=== PATIENT | female | born 2000 | race African-American/Black ===

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

== ENCOUNTER 2022-02-12 09:17 | Emergency (ER) | payer OTHER | END 2022-02-12 11:26 | disposition home or self-care (01) | LOC: ERS 09:17 | DX: H66.92 Otitis media, unspecified, left ear (principal); I10 Essential (primary) hypertension | CPT/HCPCS: 99282 ==

== ENCOUNTER 2023-01-08 15:32 | Emergency (ER) | payer OTHER ==
[2023-01-08] MEDS ORDERED: Ondansetron PF 4 MG/2 ML Vial ONE (16:03)
[2023-01-08] MEDS ORDERED: Dexameth. Sod Phosp. 10 MG/ML (CHEMO USE ONLY) ONE (16:03)
[2023-01-08] MEDS ORDERED: Ondansetron ODT 4 MG TAB ONE (16:03)
== END 2023-01-08 17:20 | disposition home or self-care (01) ==
LOC: ERS 15:32
DX: B34.9 Viral infection, unspecified (principal); I10 Essential (primary) hypertension
CPT/HCPCS: 71045; J1100; J2405; Q0162

== ENCOUNTER 2023-08-29 09:54 | Emergency (ER) | payer OTHER, SELFPAY ==
[2023-08-29 10:49] LABS: #Basophils 0.04 10x3/uL (0.0-0.2); %Basophils 0.5 % (0.0-1.0); %Lymphocytes 19.8 % (28.0-48.0); %Neutrophils 67.3 % (31.0-61.0); Hematocrit 25.5 % (36.0-47.0); Hemoglobin 6.5 g/dL (12.0-16.0); Mean Corpuscular HGB CONC 25.5 g/dL (32.0-36.0); Mean Corpuscular Hemoglobin 14.7 pg (25.0-35.0); Mean Corpuscular Volume 57.6 fL (78.0-98.0); Mean Platelet Volume 8.7 fL (7.4-10.4); Platelet Count 646 10x3/uL (130-400); RBC Distribution Width 24.1 % (11.5-14.5); Red Blood Cell (RBC) Count 4.43 mill/uL (4.00-5.20)
[2023-08-29] MEDS ORDERED: Acetaminophen 500 MG TAB ONE ×2 (11:00→13:11)
[2023-08-29 11:05] LABS: ALT (SGPT) 10 U/L (8-55); AST (SGOT) 14 U/L (5-34); Albumin 3.5 g/dL (3.5-5.0); Alkaline Phosphatase 54 U/L (40-100); Anion Gap 13 mmol/L (10-20); BUN (Urea Nitrogen) 7 mg/dL (7.0-18.7); Bilirubin, Total 0.6 mg/dL (0.2-1.2); Calc. Creatinine Clearance 0 mL/min (70-130); Calcium 9.1 mg/dL (7.8-10.44); Carbon Dioxide 18 mmol/L (22-29); Chloride 108 mmol/L (98-107); Estimated GFR 128; Globulin 3.7 g/dL (2.4-3.5); Glucose 101 mg/dL (70-105); Potassium 3.3 mmol/L (3.5-5.1); Protein, Total 7.2 g/dL (6.0-8.3); Sodium 136 mmol/L (136-145)
[2023-08-29 11:37] LABS: Anisocytosis SLIGHT = 6-15 cells HPF (0-5); Hypochromia SLIGHT = 6-15 cells HPF (0-5); Platelet Adequacy Comment Platelets Increased; Polychromasia SLIGHT = 2-3 cells HPF (0-2); Schistocytes SLIGHT = 2-5 cells HPF (0-1); Target Cells MODERATE= 6-15 cells HPF (0-1)
[2023-08-29] MEDS ORDERED: Ondansetron ODT 4 MG TAB ONE (13:11)
[2023-08-29 13:13] LABS: Bilirubin Negative (Negative); Blood, Urine Negative (Negative); CAUTI Indications for Culture Dysuria,urgency,freq; Glucose, Urine (Dipstick) 30 mg/dL (Negative); Ketone, Urine 20 mg/dL (Negative); Leukocyte 500 Leu/uL (Negative); Nitrite Negative (Negative); Protein, Urine (Dipstick) 100 mg/dL (Neg-Trace); Specific Gravity, Urine 1.033 (1.002-1.036); WBC/HPF 21-50 HPF (0-3)
[2023-08-29 13:35] LABS: Clarity Turbid (Clear)
[2023-08-29 13:36] LABS: Bacteria/HPF 2+ HPF (None Seen); Squamous Epithelial 21-50 HPF (0-3)
[2023-08-29 13:37] LABS: Urine Culture Reflex Yes Yes
== END 2023-08-29 14:21 | disposition home or self-care (01) ==
LOC: ERS 09:54
DX: O34.81 Maternal care for other abnormalities of pelvic organs, first trimester (principal); O23.41 Unspecified infection of urinary tract in pregnancy, first trimester; O16.1 Unspecified maternal hypertension, first trimester; N39.0 Urinary tract infection, site not specified; Z3A.01 Less than 8 weeks gestation of pregnancy
CPT/HCPCS: 36415; 76801; 80053; 81001; 84702; 85025; 86850; 86900; 86901; 87077; 87086; 87186; Q0162

== ENCOUNTER 2023-09-03 10:12 | Emergency (ER) | payer OTHER, SELFPAY ==
[2023-09-03 11:37] LABS: ALT (SGPT) 15 U/L (8-55); AST (SGOT) 13 U/L (5-34); Albumin 3.7 g/dL (3.5-5.0); Alkaline Phosphatase 51 U/L (40-100); Anion Gap 11 mmol/L (10-20); BUN (Urea Nitrogen) 5 mg/dL (7.0-18.7); Bilirubin, Total 0.6 mg/dL (0.2-1.2); Calc. Creatinine Clearance 0 mL/min (70-130); Calcium 9.6 mg/dL (7.8-10.44); Carbon Dioxide 20 mmol/L (22-29); Chloride 107 mmol/L (98-107); Estimated GFR 125; Globulin 4.1 g/dL (2.4-3.5); Glucose 97 mg/dL (70-105); Potassium 3.4 mmol/L (3.5-5.1); Protein, Total 7.8 g/dL (6.0-8.3); Sodium 135 mmol/L (136-145)
[2023-09-03 12:28] LABS: #Basophils 0.04 10x3/uL (0.0-0.2); %Basophils 0.9 % (0.0-1.0); %Eosinophils 6.3 % (0.0-10.0); %Lymphocytes 26.5 % (28.0-48.0); %Monocytes 5.7 % (0.0-4.0); %Neutrophils 60.4 % (31.0-61.0); Hemoglobin 11.9 g/dL (12.0-16.0); Mean Corpuscular HGB CONC 25.9 g/dL (32.0-36.0); Mean Corpuscular Hemoglobin 14.5 pg (25.0-35.0); Platelet Count 428 10x3/uL (130-400); Red Blood Cell (RBC) Count 8.22 mill/uL (4.00-5.20)
[2023-09-03 14:18] LABS: Bilirubin Negative (Negative); Blood, Urine Negative (Negative); Glucose, Urine (Dipstick) Negative (Negative); Ketone, Urine Negative (Negative); Leukocyte Moderate (Negative); Nitrite Positive (Negative); Protein, Urine (Dipstick) 30 mg/dL (Neg-Trace); Specific Gravity, Urine 1.025 (1.005-1.030)
[2023-09-03 14:23] LABS: Clarity Cloudy (Clear)
[2023-09-03 14:33] LABS: CAUTI Indications for Culture Pregnancy; RBC/HPF 0-3 HPF (0-3)
[2023-09-03 14:34] LABS: Bacteria/HPF 4+ HPF (None Seen); Squamous Epithelial 21-50 HPF (0-3); Transitional Epithelial 0-3 HPF (None Seen); Yeast-Budding 2+ HPF (None Seen); Yeast-Hyphae Rare HPF (None Seen)
[2023-09-03 14:35] LABS: Urine Culture Reflex Yes Yes
== END 2023-09-03 15:01 | disposition home or self-care (01) ==
LOC: ERS 10:12
DX: O98.811 Other maternal infectious and parasitic diseases complicating pregnancy, first trimester (principal); R82.71 Bacteriuria; O99.891 Other specified diseases and conditions complicating pregnancy; M54.50 Low back pain, unspecified; O10.911 Unspecified pre-existing hypertension complicating pregnancy, first trimester; O99.011 Anemia complicating pregnancy, first trimester; D50.9 Iron deficiency anemia, unspecified; Z3A.13 13 weeks gestation of pregnancy; Z79.899 Other long term (current) drug therapy
CPT/HCPCS: 36415; 76856; 80053; 81001; 84702; 85025; 87077; 87086; 87186

== ENCOUNTER 2023-09-23 09:43 | Emergency (ER) | payer OTHER, SELFPAY ==
[2023-09-23 12:59] LABS: Bacteria/HPF None Seen HPF (None Seen); Bilirubin Negative (Negative); Blood, Urine Negative (Negative); CAUTI Indications for Culture Dysuria,urgency,freq; Clarity Extra Turbid (Clear); Glucose, Urine (Dipstick) Normal (Negative); Ketone, Urine Negative (Negative); Leukocyte 500 Leu/uL (Negative); Nitrite Negative (Negative); Protein, Urine (Dipstick) 50 mg/dL (Neg-Trace); RBC/HPF 0-3 HPF (0-3); Specific Gravity, Urine 1.024 (1.002-1.036); Squamous Epithelial 21-50 HPF (0-3); Urobilinogen Normal mg/dL (Less than 2); WBC/HPF None Seen HPF (0-3); pH, Urine 6.5 (5.0-9.0)
[2023-09-23 13:01] LABS: Urine Culture Reflex No No
[2023-09-23 15:43] LABS: Chlamydia by PCR, Vaginal Swab Not Detected (NotDetected); GC by PCR, Vaginal Swab Not Detected (NotDetected)
== END 2023-09-23 13:57 | disposition home or self-care (01) ==
LOC: ERS 09:43
DX: O20.0 Threatened abortion (principal); O34.81 Maternal care for other abnormalities of pelvic organs, first trimester; N76.0 Acute vaginitis; N83.11 Corpus luteum cyst of right ovary; O20.8 Other hemorrhage in early pregnancy; Z3A.01 Less than 8 weeks gestation of pregnancy; Z55.6 Problems related to health literacy
CPT/HCPCS: 36415; 76801; 81001; 84702; 86900; 86901; 87480; 87491; 87510; 87591; 87660

== ENCOUNTER 2023-10-16 14:17 | Emergency (ER) | payer OTHER ==
[2023-10-16] MEDS ORDERED: Morphine 4 MG/ML VIAL ONE (16:07)
[2023-10-16] MEDS ORDERED: Ondansetron PF 4 MG/2 ML Vial ONE (16:07)
[2023-10-16 16:16] LABS: Hematocrit 27.1 % (36.0-47.0); Mean Corpuscular HGB CONC 25.8 g/dL (32.0-36.0); Mean Corpuscular Hemoglobin 14.8 pg (25.0-35.0); Mean Corpuscular Volume 57.2 fL (78.0-98.0); Mean Platelet Volume 9.1 fL (7.4-10.4); Platelet Count 587 10x3/uL (130-400); RBC Distribution Width 24.1 % (11.5-14.5); Red Blood Cell (RBC) Count 4.74 mill/uL (4.00-5.20)
[2023-10-16 16:26] LABS: BHCG - Serum POSITIVE (NEGATIVE); Pregs Control Background? CLEAR/WHITE (CLR/WHITE); Pregs Control Bar Appear? YES (CONTROL BAR)
[2023-10-16 16:36] LABS: ALT (SGPT) 13 U/L (8-55); AST (SGOT) 14 U/L (5-34); Albumin 3.3 g/dL (3.5-5.0); Alkaline Phosphatase 78 U/L (40-100); Anion Gap 13 mmol/L (10-20); BUN (Urea Nitrogen) 6 mg/dL (7.0-18.7); Bilirubin, Total 0.5 mg/dL (0.2-1.2); Calc. Creatinine Clearance 0 mL/min (70-130); Calcium 9.5 mg/dL (7.8-10.44); Carbon Dioxide 20 mmol/L (22-29); Chloride 108 mmol/L (98-107); Estimated GFR 128; Globulin 4.1 g/dL (2.4-3.5); Glucose 87 mg/dL (70-105); Lipase 8 U/L (8-78); Magnesium 1.9 mg/dL (1.7-2.2); Potassium 3.6 mmol/L (3.5-5.1); Protein, Total 7.4 g/dL (6.0-8.3); Sodium 137 mmol/L (136-145)
[2023-10-16 17:01] LABS: Band 2 % (5-11); Burr Cells SLIGHT = 2-5 cells HPF (0-1); Eosinophils 6 % (0-10); Hypochromia SLIGHT = 6-15 cells HPF (0-5); Lymphocytes 7 % (28-48); Microcytosis SLIGHT = 6-15 cells HPF (0-5); Neutrophil 85 % (31-61); Ovalocytes SLIGHT = 2-5 cells HPF (0-1); Platelet Adequacy Comment Platelets Increased; Polychromasia SLIGHT = 2-3 cells HPF (0-2); Target Cells SLIGHT = 2-5 cells HPF (0-1)
[2023-10-16 18:27] LABS: Bacteria/HPF 2+ HPF (None Seen); Bilirubin Negative (Negative); Blood, Urine 2+ (Negative); CAUTI Indications for Culture Pregnancy; Clarity Extra Turbid (Clear); Glucose, Urine (Dipstick) Normal (Negative); Ketone, Urine 20 mg/dL (Negative); Leukocyte 500 Leu/uL (Negative); Nitrite Negative (Negative); Protein, Urine (Dipstick) 300 mg/dL (Neg-Trace); RBC/HPF Greater than 50 HPF (0-3); Specific Gravity, Urine 1.024 (1.002-1.036); Squamous Epithelial Greater than 50 HPF (0-3); Urobilinogen Normal mg/dL (Less than 2); WBC/HPF Greater than 50 HPF (0-3); Yeast-Budding 1+ HPF (None Seen)
[2023-10-16 18:37] LABS: Urine Culture Reflex Yes Yes
[2023-10-16] MEDS ORDERED: cefTRIAXone (ROCEPHIN) 1 GM VIAL ONE (19:13)
[2023-10-16] MEDS ORDERED: Sodium Chloride 0.9% 100 ML ONE (19:13)
== END 2023-10-16 21:03 | disposition home or self-care (01) ==
LOC: ERS 14:17
DX: O23.42 Unspecified infection of urinary tract in pregnancy, second trimester (principal); N39.0 Urinary tract infection, site not specified; Z3A.14 14 weeks gestation of pregnancy; Z55.6 Problems related to health literacy
CPT/HCPCS: 36416; 76705; 76815; 80053; 81001; 83690; 83735; 84702; 84703; 85025; 86900; 86901; 87077; 87086; 87186; 96365; 96375; J0696; J2270; J2405; J3490

== ENCOUNTER 2025-01-12 04:23 | Emergency (ER) | payer OTHER ==
[2025-01-12 06:01] LABS: #Basophils 0.05 10x3/uL (0.0-0.2); #Eosinophils 0.87 10x3/uL (0.0-0.7); #Monocytes 0.51 10x3/uL (0.11-0.59); #Neutrophils 4.24 10x3/uL (1.40-6.50); %Basophils 0.6 % (0.0-1.0); %Eosinophils 10.1 % (0.0-10.0); %Lymphocytes 33.7 % (21.0-51.0); %Monocytes 5.9 % (0.0-10.0); %Neutrophils 49.5 % (42.0-75.0); ALT (SGPT) 14 U/L (Less than 34); AST (SGOT) 59 U/L (11-34); Albumin 4.1 g/dL (3.1-4.5); Alkaline Phosphatase 71 U/L (40-110); Anion Gap 13 mmol/L (10-20); BUN (Urea Nitrogen) 8 mg/dL (7.0-18.7); Bilirubin, Total 0.3 mg/dL (0.3-1.2); Calc. Creatinine Clearance 0 mL/min (70-130); Calcium 9.3 mg/dL (7.8-10.44); Carbon Dioxide 25 mmol/L (22-29); Chloride 105 mmol/L (98-107); Globulin 3.7 g/dL (2.4-3.5); Glucose 104 mg/dL (70-105); Hematocrit 32.9 % (36.0-47.0); Hemoglobin 9.0 g/dL (12.0-16.0); Mean Corpuscular Hemoglobin 18.3 pg (27.0-31.0); Mean Corpuscular Volume 67.0 fL (78.0-98.0); Platelet Count 549 10x3/uL (130-400); Potassium 3.5 mmol/L (3.5-5.1); Red Blood Cell (RBC) Count 4.91 mill/uL (4.20-5.40); Sodium 139 mmol/L (136-145); White Blood Cell (WBC) Count 8.58 10x3/uL (4.8-10.8)
[2025-01-12 06:08] LABS: BHCG - Serum Negative (NEGATIVE); Pregs Control Background? CLEAR/WHITE (CLR/WHITE); Pregs Control Bar Appear? YES (CONTROL BAR)
== END 2025-01-12 08:09 | disposition home or self-care (01) ==
LOC: ERS 04:23
DX: R07.9 Chest pain, unspecified (principal); I10 Essential (primary) hypertension; Z79.899 Other long term (current) drug therapy
CPT/HCPCS: 71045; 80053; 84484; 84703; 85025; 85379; 93005